=== PATIENT | male | born 1970 | race Caucasian/White ===

== ENCOUNTER 2017-04-19 19:03 | Emergency (ER) | payer OTHER, BC ==
[2017-04-19 19:18] VITALS: BP 132/78
[2017-04-19] MEDS ORDERED: LIDOCAINE 1% INJ-PF (10 MG/ML) 30 ML SDV INJ ONE (19:34)
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
[2017-04-19] MEDS ORDERED: CEPHALEXIN 500 MG CAPSULE PO ONE (20:32)
[2017-04-19] MEDS ORDERED: HYDROCODONE/ACETAMINOPHEN 5-325 MG 6 TAB/DSPK PO PRN (20:33)
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
== END 2017-04-19 21:24 | disposition home or self-care (01) ==
LOC: ER 19:03
DX: S61.402A Unspecified open wound of left hand, initial encounter (principal); W34.00XA Accidental discharge from unspecified firearms or gun, initial encounter; Y93.89 Activity, other specified
CPT/HCPCS: 99283; 73130; J3490